=== PATIENT | male | born 1975 | race Caucasian/White ===

== ENCOUNTER → 2017-02-23 | Day surgery (SDC) | payer OTHER ==
[~2017-02-23] MED LIST: FLECAINIDE ACE100 MG PO; PANTOPRAZOLE SO40 MG PO
--- NOTE | ~2017-02-23 | OR ---
Unit #: [id number] #: [id number] Patient: MICHAEL VELASQUEZ [id number] [address] [id number] MR#: [id number] NAME: MICHAEL VELASQUEZ ROOM: Date of Procedure: 02/23/2017 Admission Date: 02/23/2017 Surgeon: Timo Chow M.D. : 1975 Attending Physician: Timo Cohw M.D. Referring Physician: Timo Chow M.D. Primary Care Physician: Camila Jim M.D. OPERATIVE REPORT INDICATIONS FOR PROCEDURE Esophagogastroduodenoscopy with biopsies. INDICATIONS FOR PROCEDURE The patient with chronic GERD and Shahid esophagus. MEDICATIONS Monitored anesthesia. POSTOPERATIVE FINDINGS 1. Small segment of Shahid esophagus. Biopsies taken. 2. Hiatal hernia. 3. Mild gastritis. Biopsies taken. 4. Normal duodenum and distal duodenum. PLAN Follow up on the pathology report. If Shahid's confirmed, repeat upper endoscopy in 3 years. Continue PPI therapy. DESCRIPTION OF PROCEDURE The patient was explained of the procedure, risks, and benefits along with risks and benefits of anesthesia. He was brought to the endoscopy room. Propofol anesthesia was given. Bite block was placed. The scope was passed down the mouth into the esophagus, stomach, duodenum, and distal duodenum. Findings as described. Biopsies taken. Gently, I pulled the scope out of the patient's mouth. He tolerated it well. Dictated by... Marie Rader/adrian TD: 02/24/2017 02:04 JOB #: [id number] Unit #: [id number] #: [id number] Patient: MICHAEL VELASQUEZ OPERATIVE REPORT Page 1 of 1 X Timo Chow MD X PROCEDURE OPERATIVE NOTE
== END | disposition home or self-care (01) ==
LOC: COPS 08:29
DX: K29.50 Unspecified chronic gastritis without bleeding (principal); K22.70 Barrett's esophagus without dysplasia; K20.9 Esophagitis, unspecified; K44.9 Diaphragmatic hernia without obstruction or gangrene; K21.9 Gastro-esophageal reflux disease without esophagitis; Z79.899 Other long term (current) drug therapy
CPT/HCPCS: 88305; 88312